=== PATIENT | female | born 1965 | race Caucasian/White ===

== ENCOUNTER 2016-09-14 05:56 | Emergency (ER) | payer BC ==
[2016-09-14 06:04] VITALS: BP 184/68; PULSE 80; RESP 22; TEMP 97.9
--- NOTE | 2016-09-14 06:22 | ED ---
General Adult HPI - General Chief complaint: Psychiatric Symptoms Stated complaint: Mental Health Time Seen by Provider: 09/14/16 06:02 Source: patient, RN notes reviewed, old records reviewed Mode of arrival: EMS - History of Present Illness Initial comments: This is a 58-year-old female to the ER for evaluation today. Patient coming in for evaluation of mental health, psychiatric disease. Patient states that she is apparently living her body which is time the her, she is scratching at it persistently and causing a soft the point of bleeding. Patient has convictions and delusions that this parasite is eating or from the inside out and surgically attacking her body - Related Data Home Medications Medication Instructions Recorded Confirmed Citalopram Hydrobromide 60 mg PO DAILY 02/16/15 07/26/15 [Citalopram HBr] Estrogens, Conjugated [Premarin] 0.3 mg PO DAILY 02/16/15 07/26/15 Gemfibrozil [Gemfibrozil] 600 mg PO BID 02/16/15 07/26/15 Salsalate [Salsalate] 500 mg PO DAILY 02/16/15 07/26/15 Cyclobenzaprine [Flexeril] 10 mg PO HS 07/26/15 07/26/15 Diazepam [Diazepam] 10 mg PO TID PRN 07/26/15 07/26/15 EPINEPHrine (Auto Inject) [Epipen] 0.3 mg IM ONCE PRN 07/26/15 07/26/15 Omeprazole 20 mg PO DAILY 07/26/15 07/26/15 oxyCODONE-APAP 10-325MG [Percocet 1 tab PO Q8H PRN 07/26/15 07/26/15 10-325 mg] Allergies Allergy/AdvReac Type Severity Reaction Status Date / Time No Known Allergies Allergy Verified 07/26/15 10:40 Review of Systems ROS Statement: Those systems with pertinent positive or pertinent negative responses have been documented in the HPI. ROS Other: All systems not noted in ROS Statement are negative. Past Medical History Additional Past Medical History / Comment(s): trigeminal neuralgia, TMJ History of Any Multi-Drug Resistant Organisms: None Reported Past Surgical History: Appendectomy, Cholecystectomy, Hysterectomy Additional Past Surgical History / Comment(s): cervical fusion, Left great toe othro sx, Past Anesthesia/Blood Transfusion Reactions: No Reported Reaction Past Psychological History: No Psychological Hx Reported Smoking Status: Former smoker Past Alcohol Use History: None Reported Past Drug Use History: Heroin General Exam General appearance: alert, in no apparent distress Head exam: Present: atraumatic, normocephalic, normal inspection Eye exam: Present: normal appearance, PERRL, EOMI. Absent: scleral icterus, conjunctival injection, periorbital swelling ENT exam: Present: normal exam, mucous membranes moist Neck exam: Present: normal inspection. Absent: tenderness, meningismus, lymphadenopathy Respiratory exam: Present: normal lung sounds bilaterally. Absent: respiratory distress, wheezes, rales, rhonchi, stridor Cardiovascular Exam: Present: regular rate, normal rhythm, normal heart sounds. Absent: systolic murmur, diastolic murmur, rubs, gallop, clicks GI/Abdominal exam: Present: soft, normal bowel sounds. Absent: distended, tenderness, guarding, rebound, rigid Extremities exam: Present: normal inspection, full ROM, normal capillary refill. Absent: tenderness, pedal edema, joint swelling, calf tenderness Back exam: Present: normal inspection Neurological exam: Present: alert, oriented X3, CN II-XII intact Psychiatric exam: Present: normal affect, normal mood Skin exam: Present: warm, dry, intact, normal color. Absent: rash Course Vital Signs 09/14/16 05:58 Temperature 97.9 F Pulse Rate 80 Respiratory 22 Rate Blood Pressure 184/68 O2 Sat by Pulse 99 Oximetry - Reevaluation(s) Reevaluation #1: 09/14/16 06:22 Patient is medically clear for psychiatric evaluation Medical Decision Making - Medical Decision Making 50 female status of her body, patient denies homicidal or suicidal thoughts, patient unhappy with thoughts of psychiatric evaluation and and refuses to stay in hospital, is here to take patient home Disposition Clinical Impression: Psychosis Disposition: Left Against Medical Advice Condition: Undetermined Referrals: Marco Sims DO [Primary Care Provider] - 1-2 days
== END 2016-09-14 06:44 | disposition left against medical advice (07) ==
LOC: EC 05:56
DX: F29 Unspecified psychosis not due to a substance or known physiological condition (principal); G50.0 Trigeminal neuralgia; Z87.891 Personal history of nicotine dependence; Z79.899 Other long term (current) drug therapy; Z53.29 Procedure and treatment not carried out because of patient's decision for other reasons
CPT/HCPCS: 99284

== ENCOUNTER → 2017-12-04 | Outpatient (CLI) | payer BC ==
[2017-12-04 10:50] LABS: Basophils % (A) 0 %; Eosinophils # (A) 0.3 k/uL (0-0.7); Eosinophils % (A) 3 %; HCT 42.8 % (34.0-46.0); HGB 14.3 gm/dL (11.4-16.0); Lymphocytes # (A) 2.7 k/uL (1.0-4.8); Lymphocytes % (A) 32 %; MCHC 33.4 g/dL (31.0-37.0); MCV 92.6 fL (80.0-100.0); Mean Platelet Volume 6.8; Monocytes # (A) 0.5 k/uL (0-1.0); Monocytes % (A) 6 %; Neutrophils # (A) 4.8 k/uL (1.3-7.7); Neutrophils % (A) 57 %; Platelet Count 434 k/uL (150-450); RBC 4.62 m/uL (3.80-5.40); RDW 13.5 % (11.5-15.5); WBC 8.5 k/uL (3.8-10.6)
[2017-12-04 11:24] LABS: ALT 14 U/L (9-52); AST 20 U/L (14-36); Albumin 4.1 g/dL (3.5-5.0); Alkaline Phosphatase 90 U/L (38-126); Anion Gap 7 mmol/L; Blood Urea Nitrogen 21 mg/dL (7-17); Calcium 9.9 mg/dL (8.4-10.2); Carbon Dioxide 29 mmol/L (22-30); Chloride 103 mmol/L (98-107); Cholesterol 244 mg/dL (<200); Creatine Kinase 48 U/L (30-135); Glucose 97 mg/dL (74-99); HDL Cholesterol 55 mg/dL (40-60); LDL Cholesterol,Calculated 160 mg/dL (0-99); Potassium 4.8 mmol/L (3.5-5.1); Sodium 139 mmol/L (137-145); Total Bilirubin 0.5 mg/dL (0.2-1.3); Total Protein 7.5 g/dL (6.3-8.2); Triglycerides 147 mg/dL (<150)
[2017-12-04 11:40] LABS: T4, Free (Free Thyroxine) 1.09 ng/dL (0.78-2.19)
[2017-12-04 11:43] LABS: Appearance,Urine Clear (Clear); Bilirubin,Urine Negative (Negative); Blood,Urine Negative (Negative); Color,Urine Yellow; Glucose,Urine (UA) Negative (Negative); Ketones,Urine Negative (Negative); Leukocyte Esterase,Urine Negative (Negative); Nitrite,Urine Negative (Negative); PH, Urine 6.5 (5.0-8.0); Protein,Urine Negative (Negative); Specific Gravity,Urine 1.017 (1.001-1.035); Urobilinogen,Urine <2.0 mg/dL (<2.0)
[2017-12-04 12:08] LABS: C Reactive Protein 10.8 mg/L (<10.0)
[2017-12-04 12:15] LABS: Erythrocyte Sedimentation Rate 18 mm/hr (0-20)
[2017-12-04 19:07] LABS: Hemoglobin A1C 5.8 % (4.0-6.0)
== END | disposition home or self-care (01) ==
LOC: LABWHC1 09:20
PROVIDERS: ATTEND Internal Medicine
DX: E78.5 Hyperlipidemia, unspecified (principal); D64.9 Anemia, unspecified; I10 Essential (primary) hypertension; E03.9 Hypothyroidism, unspecified; E55.9 Vitamin D deficiency, unspecified
CPT/HCPCS: 36415; 80053; 80061; 81003; 82306; 82550; 83036; 83735; 84439; 84443; 85025; 85652; 86140

== ENCOUNTER 2018-07-31 07:47 | Inpatient (IN) | payer BC ==
[2018-07-31] MEDS ORDERED: SODIUM CHLORIDE 0.9% 1,000 ML IV STA (08:02)
[2018-07-31] MEDS ORDERED: SODIUM CHLORIDE 0.9% 500 ML 500 ML IV STA (08:02)
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
[2018-07-31 08:29] LABS: Basophils % (A) 0 %; Eosinophils % (A) 0 %; HCT 36.9 % (34.0-46.0); HGB 12.3 gm/dL (11.4-16.0); Lymphocytes # (A) 1.4 k/uL (1.0-4.8); Lymphocytes % (A) 15 %; MCH 30.5 pg (25.0-35.0); MCHC 33.3 g/dL (31.0-37.0); MCV 91.4 fL (80.0-100.0); Mean Platelet Volume 7.1; Monocytes # (A) 0.5 k/uL (0-1.0); Monocytes % (A) 5 %; Neutrophils # (A) 7.2 k/uL (1.3-7.7); Neutrophils % (A) 78 %; Platelet Count 434 k/uL (150-450); RBC 4.04 m/uL (3.80-5.40); RDW 14.7 % (11.5-15.5); WBC 9.3 k/uL (3.8-10.6)
[2018-07-31 08:38] LABS: ALT 35 U/L (9-52); AST 35 U/L (14-36); Albumin 4.5 g/dL (3.5-5.0); Alkaline Phosphatase 121 U/L (38-126); Anion Gap 9 mmol/L; Blood Urea Nitrogen 27 mg/dL (7-17); Calcium 9.9 mg/dL (8.4-10.2); Carbon Dioxide 24 mmol/L (22-30); Chloride 107 mmol/L (98-107); Glucose 92 mg/dL (74-99); Potassium 3.5 mmol/L (3.5-5.1); Salicylate <1.0 mg/dL; Sodium 140 mmol/L (137-145); Total Protein 7.5 g/dL (6.3-8.2)
[2018-07-31 08:39] LABS: Acetaminophen <10.0 ug/mL; Alcohol <10 mg/dL
[2018-07-31] MEDS ORDERED: LORazepam 2 MG/ML INJ IM STA (08:50)
--- NOTE | 2018-07-31 09:01 | CT ---
EXAMINATION TYPE: CT brain wo con DATE OF EXAM: 07/31/2018 COMPARISON: None INDICATION: Mental health DLP: 2296.4 mGycm, Automated exposure control for dose reduction was used. CONTRAST: None CT of the brain is performed utilizing 3 mm thick sections through the posterior fossa and 3 mm thick sections through the remaining calvarium. Study is performed within 24 hours of arrival to the hosp ital. Best possible imaging was performed with an uncooperative patient. Images were repeated. No abnormal hyperdensity is present to suggest an acute intracranial hemorrhage. No mass lesion is evident. No acute infarcts are evident. Ventricles and sulci are appropriate for the patient age. Paranasal sinuses and mastoid air cells within the [id number] are clear. No acute fractures are identified. IMPRESSIONS: 1. No acute intracranial process.
[2018-07-31] MEDS ORDERED: ZIPRASIDONE 20 MG VIAL IM STA (11:54)
[2018-07-31] MEDS ORDERED: LORazepam 1 MG TAB PO PRN ×2 (14:19→22:44)
[2018-07-31] MEDS ORDERED: MAG HYDROX/AL HYDROX/SIMETH 30 ML CUP PO PRN (14:19)
[2018-07-31] MEDS ORDERED: MAGNESIUM HYDROXIDE 2,400 MG/10 ML CUP PO PRN (14:19)
[2018-07-31] MEDS: CYCLOBENZAPRINE 10 MG TAB PO SCH ×2 (16:24→20:23)
[2018-07-31] MEDS: GABAPENTIN 300 MG CAP PO SCH ×2 (16:24→20:23)
--- NOTE | 2018-07-31 17:36 | P.PN ---
Progress Note - Text Progress Note Date: 07/31/18 Discussed with VAZQUEZ Reagan, patient received Geodon IM injection on the ED. She is currently sleeping and is inappropriate to be seen at this time. Will attempt to see her tomorrow morning.
[2018-07-31] MEDS: PANTOPRAZOLE 40 MG TABLET PO SCH (17:49)
[2018-07-31] MEDS: ZIPRASIDONE 20 MG VIAL IM PRN (21:30)
[2018-08-01] MEDS ORDERED: ZIPRASIDONE 20 MG VIAL IM ONE (07:54)
[2018-08-01] MEDS: ZIPRASIDONE 20 MG VIAL IM PRN (07:58)
[2018-08-01] MEDS ORDERED: CITALOPRAM HYDROBROMIDE 20 MG TAB PO SCH (09:00)
[2018-08-01] MEDS ORDERED: LORazepam 2 MG/ML INJ IM PRN (09:48)
[2018-08-01] MEDS: ATORVASTATIN 40 MG TAB PO SCH (09:59)
[2018-08-01] MEDS: PANTOPRAZOLE 40 MG TABLET PO SCH ×2 (09:59→18:16)
[2018-08-01] MEDS: GABAPENTIN 300 MG CAP PO SCH ×3 (10:00→22:00)
[2018-08-01] MEDS: CYCLOBENZAPRINE 10 MG TAB PO SCH ×3 (10:00→21:58)
[2018-08-01] MEDS: OLANZapine 5 MG TAB PO SCH ×2 (13:37→21:58)
[2018-08-01 13:48] LABS: Appearance,Urine Cloudy (Clear); Bacteria,Urine Rare /hpf; Bilirubin,Urine Negative (Negative); Blood,Urine Negative (Negative); Color,Urine Yellow; Glucose,Urine (UA) Negative (Negative); Ketones,Urine Trace (Negative); Leukocyte Esterase,Urine Negative (Negative); Mucus,Urine Many /hpf; Nitrite,Urine Negative (Negative); Protein,Urine 1+ (Negative); RBC,Urine 10 /hpf (0-5); Specific Gravity,Urine 1.031 (1.001-1.035); Squamous Epithelial Cell,Urine 3 /hpf (0-4); Urobilinogen,Urine <2.0 mg/dL (<2.0); WBC,Urine 3 /hpf (0-5)
[2018-08-01 13:49] LABS: Amphetamine Screen,Urine Detected (NotDetected); Cocaine Screen,Urine Not Detected (NotDetected); Opiate Screen,Urine Not Detected (NotDetected); Phencyclidine Screen,Urine Not Detected (NotDetected); Urn Cannabinoid Scrn Not Detected (NotDetected)
[2018-08-01 13:50] LABS: Barbiturate Screen,Urine Not Detected (NotDetected); Benzodiazepines Screen,Urine Detected (NotDetected); Methadone Screen, Urine Not Detected (NotDetected); Oxycodone Screen, Urine Not Detected (NotDetected); Tricyclic Antidepressant,Urine Detected (NotDetected)
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
[2018-08-01] MEDS: NICOTINE 14MG/24HR PATCH TRANSDERM SCH (22:00)
[2018-08-02] MEDS: ACETAMINOPHEN TAB 325 MG TAB PO PRN ×2 (02:29→10:32)
[2018-08-02] MEDS: LORazepam 1 MG TAB PO PRN ×2 (02:29→15:45)
[2018-08-02] MEDS: PANTOPRAZOLE 40 MG TABLET PO SCH ×2 (07:57→16:34)
[2018-08-02] MEDS: OLANZapine 5 MG TAB PO SCH ×2 (09:22→22:52)
[2018-08-02] MEDS: NICOTINE 14MG/24HR PATCH TRANSDERM SCH (09:22)
[2018-08-02] MEDS: GABAPENTIN 300 MG CAP PO SCH ×3 (09:23→22:52)
[2018-08-02] MEDS: ATORVASTATIN 40 MG TAB PO SCH (09:23)
[2018-08-02] MEDS: CYCLOBENZAPRINE 10 MG TAB PO SCH ×3 (09:23→22:52)
[2018-08-02] MEDS: ESTROGENS, CONJUGATED 0.3 MG TAB PO SCH (11:10)
[2018-08-02] MEDS ORDERED: IBUPROFEN 800 MG TAB PO ONE (12:45)
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
[2018-08-02] MEDS ORDERED: IBUPROFEN 800 MG TAB PO SCH (16:00)
[2018-08-02] MEDS: IBUPROFEN 800 MG TAB PO SCH (18:18)
[2018-08-03] MEDS: ESTROGENS, CONJUGATED 0.3 MG TAB PO SCH (08:36)
[2018-08-03] MEDS: NICOTINE 14MG/24HR PATCH TRANSDERM SCH (08:36)
[2018-08-03] MEDS: LORazepam 1 MG TAB PO PRN ×2 (08:36→15:32)
[2018-08-03] MEDS: OLANZapine 5 MG TAB PO SCH ×2 (08:37→21:20)
[2018-08-03] MEDS: CYCLOBENZAPRINE 10 MG TAB PO SCH ×3 (08:37→21:20)
[2018-08-03] MEDS: PANTOPRAZOLE 40 MG TABLET PO SCH ×2 (08:37→17:50)
[2018-08-03] MEDS: ATORVASTATIN 40 MG TAB PO SCH (08:39)
[2018-08-03] MEDS: IBUPROFEN 800 MG TAB PO SCH ×3 (09:45→21:21)
[2018-08-03] MEDS: GABAPENTIN 300 MG CAP PO SCH ×3 (09:46→21:20)
[2018-08-03] MEDS: ACETAMINOPHEN TAB 325 MG TAB PO PRN (10:23)
[2018-08-03] MEDS: NICOTINE 21MG/24HR PATCH TRANSDERM SCH (11:23)
[2018-08-03 11:52] LABS: Hemoglobin A1C 5.4 % (4.0-6.0)
[2018-08-03] MEDS: cloNIDine HCL 0.1 MG TAB PO SCH ×2 (11:58→21:20)
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
[2018-08-03] MEDS: ALBUTEROL NEBULIZED 2.5 MG/3 ML INHALATION PRN (13:08)
[2018-08-03 14:44] LABS: Serum Amphetamine Negative; Serum Barbiturates Negative; Serum Benzodiazepine Positive; Serum Cocaine Negative; Serum Methadone Negative; Serum Opiates Negative; Serum Phencyclidine Negative; Serum Propoxyphene Negative; Serum THC (Cannabis) Negative
[2018-08-03] MEDS ORDERED: cloNIDine HCL 0.1 MG TAB PO SCH (21:00)
[2018-08-03] MEDS: DIVALPROEX SPRINKLE 125 MG CAP.SPRINK PO SCH (21:21)
[2018-08-04] MEDS: OLANZapine 5 MG TAB PO SCH (08:37)
[2018-08-04] MEDS: cloNIDine HCL 0.1 MG TAB PO SCH ×2 (08:37→21:49)
[2018-08-04] MEDS: GABAPENTIN 300 MG CAP PO SCH ×3 (08:37→21:52)
[2018-08-04] MEDS: DIVALPROEX SPRINKLE 125 MG CAP.SPRINK PO SCH ×2 (08:37→21:51)
[2018-08-04] MEDS: IBUPROFEN 800 MG TAB PO SCH ×3 (08:37→21:52)
[2018-08-04] MEDS: ESTROGENS, CONJUGATED 0.3 MG TAB PO SCH (08:37)
[2018-08-04] MEDS: PANTOPRAZOLE 40 MG TABLET PO SCH ×2 (08:38→18:01)
[2018-08-04] MEDS: NICOTINE 21MG/24HR PATCH TRANSDERM SCH (08:38)
[2018-08-04] MEDS: ATORVASTATIN 40 MG TAB PO SCH (08:38)
[2018-08-04] MEDS: CYCLOBENZAPRINE 10 MG TAB PO SCH ×3 (08:38→21:52)
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
[2018-08-04] MEDS: ALBUTEROL NEBULIZED 2.5 MG/3 ML INHALATION PRN ×2 (14:14→21:50)
[2018-08-04] MEDS: ACETAMINOPHEN TAB 325 MG TAB PO PRN (19:51)
[2018-08-05] MEDS: NICOTINE 21MG/24HR PATCH TRANSDERM SCH (08:34)
[2018-08-05] MEDS: CYCLOBENZAPRINE 10 MG TAB PO SCH ×3 (08:34→21:15)
[2018-08-05] MEDS: ATORVASTATIN 40 MG TAB PO SCH (08:34)
[2018-08-05] MEDS: cloNIDine HCL 0.1 MG TAB PO SCH ×2 (08:34→21:15)
[2018-08-05] MEDS: GABAPENTIN 300 MG CAP PO SCH ×3 (08:34→21:15)
[2018-08-05] MEDS: PANTOPRAZOLE 40 MG TABLET PO SCH ×2 (08:35→15:53)
[2018-08-05] MEDS: IBUPROFEN 800 MG TAB PO SCH ×3 (08:37→21:15)
[2018-08-05] MEDS: ESTROGENS, CONJUGATED 0.3 MG TAB PO SCH (08:41)
[2018-08-05] MEDS: DIVALPROEX SPRINKLE 125 MG CAP.SPRINK PO SCH (08:41)
[2018-08-05] MEDS ORDERED: CITALOPRAM HYDROBROMIDE 20 MG TAB PO SCH (09:00)
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
[2018-08-05] MEDS ORDERED: DIVALPROEX ER 250 MG TAB.ER.24H PO SCH (21:00)
[2018-08-05] MEDS: ALBUTEROL NEBULIZED 2.5 MG/3 ML INHALATION PRN (22:16)
[2018-08-06] MEDS: PANTOPRAZOLE 40 MG TABLET PO SCH ×2 (07:43→17:48)
[2018-08-06] MEDS: NICOTINE 21MG/24HR PATCH TRANSDERM SCH (08:30)
[2018-08-06] MEDS: GABAPENTIN 300 MG CAP PO SCH ×3 (08:30→21:16)
[2018-08-06] MEDS: ESTROGENS, CONJUGATED 0.3 MG TAB PO SCH (08:31)
[2018-08-06] MEDS: cloNIDine HCL 0.1 MG TAB PO SCH ×2 (08:31→21:15)
[2018-08-06] MEDS: CYCLOBENZAPRINE 10 MG TAB PO SCH ×3 (08:31→21:16)
[2018-08-06] MEDS: ATORVASTATIN 40 MG TAB PO SCH (08:31)
[2018-08-06] MEDS: IBUPROFEN 800 MG TAB PO SCH ×3 (08:32→21:15)
[2018-08-06] MEDS: ALBUTEROL NEBULIZED 2.5 MG/3 ML INHALATION PRN (09:44)
[2018-08-06] MEDS: ACETAMINOPHEN TAB 325 MG TAB PO PRN (11:22)
[2018-08-06] MEDS ORDERED: NA PHOS,M-B/NA PHOS,DI-BA 133 ML ENEMA RECTAL ONE (12:00)
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
[2018-08-06] MEDS ORDERED: ALBUTEROL NEBULIZED 2.5 MG/3 ML INHALATION PRN (14:22)
[2018-08-06] MEDS: DIVALPROEX ER 500 MG TAB.ER.24H PO SCH (21:16)
[2018-08-07] MEDS: ACETAMINOPHEN TAB 325 MG TAB PO PRN (00:37)
--- NOTE | 2018-08-07 01:18 | P.PN ---
Progress Note - Text Progress Note Date: 08/07/18 Notified by nurse to see patient complaining of sudden onset abdominal pain. Patient reports severe abdominal pain all over her belly radiating to the back no associated nausea vomiting no fevers chills no GI bleeding. She reports some constipation yesterday she was given Fleet enema after which she passed some bowel movement. She reports that she was recently a month ago hospitalized at [facility] for similar episode of abdominal pain she spent a week at the hospital was told that she has irritable bowel syndrome but they were trying to rule out obstructive bowels and was discharged home she did not require any surgical intervention At this time her vital signs are stable no hypertension no tachycardia no fevers. Patient rates her pain 10 out of 10 in severity sharp in nature radiating to the back all over her belly no relieving or aggravating factor she also has the urge to urinate at this time. But denies any dysuria frequency or incomplete emptying denies any hematuria Abdominal exam diffusely tender to palpation with voluntary guarding no rebound tenderness nor rigidity soft, bowel sounds positive, no palpable organomegaly no abdominal wall hernias no skin rashes Patient with history of irritable bowel syndrome Plan Check acute abdominal series rule out any air under the diaphragm that could indicate bowel Also evaluate for bowel caliber's or any evidence of bowel obstruction Check serum amylase, lipase, CBC, CMP Further recommendations pending review of above tests If they come back unremarkable, patient will be given a dose of Bentyl to help with IBD
--- NOTE | 2018-08-07 02:06 | XR ---
INDICATION: Acute sudden onset abdominal pain COMPARISON: Abdominal radiographs 07/26/15 FINDINGS: Upright frontal view of the chest and upright and supine frontal views of the abdomen are reviewed. The lungs are clear. The cardiac and mediastinal contours are normal. No evidence of extraluminal air under the diaphragms. The abdominal films demonstrate a normal bowel gas pattern. No bowel distention or air-fluid levels. No evidence of organomegaly, abnormal calcifications or obvious soft tissue masses. There are cholecystectomy clips in the right upper quadrant. There are no acute osseous findings. There has been previous surgical fusion of the lower cervical spine. IMPRESSION: Nonobstructive bowel gas pattern.
[2018-08-07 02:09] LABS: Basophils % (A) 0 %; Eosinophils # (A) 0.3 k/uL (0-0.7); Eosinophils % (A) 4 %; HCT 37.2 % (34.0-46.0); HGB 12.2 gm/dL (11.4-16.0); Lymphocytes # (A) 2.8 k/uL (1.0-4.8); Lymphocytes % (A) 40 %; MCH 30.7 pg (25.0-35.0); MCHC 32.7 g/dL (31.0-37.0); MCV 93.9 fL (80.0-100.0); Mean Platelet Volume 6.5; Monocytes # (A) 0.4 k/uL (0-1.0); Monocytes % (A) 5 %; Neutrophils # (A) 3.4 k/uL (1.3-7.7); Neutrophils % (A) 48 %; Platelet Count 305 k/uL (150-450); RBC 3.96 m/uL (3.80-5.40); WBC 7.1 k/uL (3.8-10.6)
[2018-08-07 02:31] LABS: ALT 31 U/L (9-52); AST 26 U/L (14-36); Albumin 3.5 g/dL (3.5-5.0); Alkaline Phosphatase 97 U/L (38-126); Amylase 51 U/L (30-110); Anion Gap 4 mmol/L; Blood Urea Nitrogen 8 mg/dL (7-17); Calcium 9.1 mg/dL (8.4-10.2); Carbon Dioxide 26 mmol/L (22-30); Chloride 109 mmol/L (98-107); Glucose 101 mg/dL (74-99); Lipase 59 U/L (23-300); Potassium 3.9 mmol/L (3.5-5.1); Sodium 139 mmol/L (137-145); Total Bilirubin 0.4 mg/dL (0.2-1.3); Total Protein 6.1 g/dL (6.3-8.2)
[2018-08-07] MEDS: ATORVASTATIN 40 MG TAB PO SCH (08:17)
[2018-08-07] MEDS: CYCLOBENZAPRINE 10 MG TAB PO SCH ×3 (08:18→20:17)
[2018-08-07] MEDS: NICOTINE 21MG/24HR PATCH TRANSDERM SCH (08:18)
[2018-08-07] MEDS: GABAPENTIN 300 MG CAP PO SCH ×3 (08:18→20:21)
[2018-08-07] MEDS: ESTROGENS, CONJUGATED 0.3 MG TAB PO SCH (08:18)
[2018-08-07] MEDS: PANTOPRAZOLE 40 MG TABLET PO SCH ×2 (08:18→18:06)
[2018-08-07] MEDS: IBUPROFEN 800 MG TAB PO SCH ×3 (08:19→20:15)
[2018-08-07] MEDS: DICYCLOMINE 20 MG TAB PO PRN ×3 (08:19→20:47)
[2018-08-07] MEDS: cloNIDine HCL 0.1 MG TAB PO SCH ×2 (08:20→20:14)
[2018-08-07] MEDS ORDERED: ALBUTEROL INHALER 60 PUFF/8 GM INHALER INHALATION PRN (10:32)
[2018-08-07] MEDS: ALBUTEROL INHALER 60 PUFF/8 GM INHALER INHALATION PRN ×2 (10:52→16:08)
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
[2018-08-07] MEDS: DIVALPROEX ER 500 MG TAB.ER.24H PO SCH (20:14)
[2018-08-07] MEDS: SUMAtriptan SUCCINATE 25 MG TAB PO PRN (20:22)
[2018-08-08] MEDS: GABAPENTIN 300 MG CAP PO SCH ×3 (08:17→20:44)
[2018-08-08] MEDS: ATORVASTATIN 40 MG TAB PO SCH (08:17)
[2018-08-08] MEDS: NICOTINE 21MG/24HR PATCH TRANSDERM SCH (08:17)
[2018-08-08] MEDS: ESTROGENS, CONJUGATED 0.3 MG TAB PO SCH (08:17)
[2018-08-08] MEDS: cloNIDine HCL 0.1 MG TAB PO SCH ×2 (08:18→20:45)
[2018-08-08] MEDS: IBUPROFEN 800 MG TAB PO SCH ×3 (08:18→20:44)
[2018-08-08] MEDS: PANTOPRAZOLE 40 MG TABLET PO SCH ×2 (08:18→16:37)
[2018-08-08] MEDS: CYCLOBENZAPRINE 10 MG TAB PO SCH ×3 (08:18→20:44)
[2018-08-08] MEDS: ALBUTEROL INHALER 60 PUFF/8 GM INHALER INHALATION PRN (08:22)
[2018-08-08] MEDS: DICYCLOMINE 20 MG TAB PO PRN ×2 (09:03→16:40)
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
[2018-08-08] MEDS: DIVALPROEX ER 500 MG TAB.ER.24H PO SCH (20:45)
[2018-08-09] MEDS: ALBUTEROL INHALER 60 PUFF/8 GM INHALER INHALATION PRN ×2 (07:47→16:19)
[2018-08-09] MEDS: PANTOPRAZOLE 40 MG TABLET PO SCH ×2 (07:48→18:01)
[2018-08-09] MEDS: DICYCLOMINE 20 MG TAB PO PRN ×2 (07:48→16:19)
[2018-08-09] MEDS: ESTROGENS, CONJUGATED 0.3 MG TAB PO SCH (07:48)
[2018-08-09] MEDS: ATORVASTATIN 40 MG TAB PO SCH (07:49)
[2018-08-09] MEDS: CYCLOBENZAPRINE 10 MG TAB PO SCH ×3 (07:49→20:13)
[2018-08-09] MEDS: IBUPROFEN 800 MG TAB PO SCH ×3 (07:49→20:13)
[2018-08-09] MEDS: GABAPENTIN 300 MG CAP PO SCH ×3 (07:49→20:12)
[2018-08-09] MEDS: cloNIDine HCL 0.1 MG TAB PO SCH ×2 (07:50→20:13)
[2018-08-09] MEDS: NICOTINE 21MG/24HR PATCH TRANSDERM SCH (07:51)
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
[2018-08-09] MEDS ORDERED: ZIPRASIDONE 20 MG VIAL IM ONE (14:22)
[2018-08-09] MEDS: SUMAtriptan SUCCINATE 25 MG TAB PO PRN (17:56)
[2018-08-09] MEDS: OLANZapine 2.5 MG TAB PO SCH (20:12)
[2018-08-09] MEDS: DIVALPROEX ER 500 MG TAB.ER.24H PO SCH (20:12)
[2018-08-10] MEDS: NICOTINE 21MG/24HR PATCH TRANSDERM SCH (07:45)
[2018-08-10] MEDS: ESTROGENS, CONJUGATED 0.3 MG TAB PO SCH (07:46)
[2018-08-10] MEDS: GABAPENTIN 300 MG CAP PO SCH ×3 (07:46→20:18)
[2018-08-10] MEDS: IBUPROFEN 800 MG TAB PO SCH ×3 (07:46→20:19)
[2018-08-10] MEDS: ATORVASTATIN 40 MG TAB PO SCH (07:47)
[2018-08-10] MEDS: PANTOPRAZOLE 40 MG TABLET PO SCH ×2 (07:47→16:28)
[2018-08-10] MEDS: CYCLOBENZAPRINE 10 MG TAB PO SCH ×3 (07:47→20:18)
[2018-08-10] MEDS: cloNIDine HCL 0.1 MG TAB PO SCH ×2 (07:48→20:19)
[2018-08-10] MEDS: DICYCLOMINE 20 MG TAB PO PRN ×2 (07:51→18:15)
[2018-08-10] MEDS: ALBUTEROL INHALER 60 PUFF/8 GM INHALER INHALATION PRN (07:51)
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
[2018-08-10] MEDS: SUMAtriptan SUCCINATE 25 MG TAB PO PRN (18:15)
[2018-08-10] MEDS: DIVALPROEX ER 250 MG TAB.ER.24H PO SCH (20:18)
[2018-08-10] MEDS: OLANZapine 2.5 MG TAB PO SCH (20:18)
[2018-08-11] MEDS: ALBUTEROL INHALER 60 PUFF/8 GM INHALER INHALATION PRN ×2 (07:13→21:16)
[2018-08-11] MEDS: PANTOPRAZOLE 40 MG TABLET PO SCH ×2 (07:45→17:28)
[2018-08-11] MEDS: DICYCLOMINE 20 MG TAB PO PRN ×3 (07:45→21:16)
[2018-08-11] MEDS: GABAPENTIN 300 MG CAP PO SCH ×3 (08:03→21:14)
[2018-08-11] MEDS: IBUPROFEN 800 MG TAB PO SCH ×3 (08:03→21:14)
[2018-08-11] MEDS: NICOTINE 21MG/24HR PATCH TRANSDERM SCH (08:03)
[2018-08-11] MEDS: ESTROGENS, CONJUGATED 0.3 MG TAB PO SCH (08:03)
[2018-08-11] MEDS: cloNIDine HCL 0.1 MG TAB PO SCH ×2 (08:03→21:15)
[2018-08-11] MEDS: CYCLOBENZAPRINE 10 MG TAB PO SCH ×3 (08:03→21:13)
[2018-08-11] MEDS: ATORVASTATIN 40 MG TAB PO SCH (08:04)
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
[2018-08-11] MEDS: DIVALPROEX ER 250 MG TAB.ER.24H PO SCH (21:13)
[2018-08-11] MEDS: OLANZapine 2.5 MG TAB PO SCH (21:14)
[2018-08-12 06:28] VITALS: TEMP 98.1
[2018-08-12] MEDS: DICYCLOMINE 20 MG TAB PO PRN ×2 (08:01→13:47)
[2018-08-12] MEDS: GABAPENTIN 300 MG CAP PO SCH ×2 (08:01→15:59)
[2018-08-12] MEDS: ESTROGENS, CONJUGATED 0.3 MG TAB PO SCH (08:01)
[2018-08-12] MEDS: NICOTINE 21MG/24HR PATCH TRANSDERM SCH (08:01)
[2018-08-12] MEDS: IBUPROFEN 800 MG TAB PO SCH ×2 (08:01→15:59)
[2018-08-12] MEDS: ALBUTEROL INHALER 60 PUFF/8 GM INHALER INHALATION PRN (08:01)
[2018-08-12] MEDS: PANTOPRAZOLE 40 MG TABLET PO SCH ×2 (08:02→16:00)
[2018-08-12] MEDS: ATORVASTATIN 40 MG TAB PO SCH (08:02)
[2018-08-12] MEDS: cloNIDine HCL 0.1 MG TAB PO SCH (08:02)
[2018-08-12] MEDS: CYCLOBENZAPRINE 10 MG TAB PO SCH ×2 (08:02→16:00)
[2018-08-12 08:09] VITALS: BP 144/80; PULSE 82; RESP 18
[2018-08-12] MEDS: ACETAMINOPHEN TAB 325 MG TAB PO PRN (11:56)
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
== END 2018-08-12 16:04 | disposition home or self-care (01) | DRG 885 ==
LOC: EC 07:47 → 3MHU 13:20
PROVIDERS: ADMIT Psychiatry & Neurology Psychiatry; ATTEND Psychiatry & Neurology Psychiatry
DX: F31.2 Bipolar disorder, current episode manic severe with psychotic features (principal); F42.9 Obsessive-compulsive disorder, unspecified; F15.90 Other stimulant use, unspecified, uncomplicated; F41.8 Other specified anxiety disorders; M79.7 Fibromyalgia; G50.0 Trigeminal neuralgia; F98.8 Other specified behavioral and emotional disorders with onset usually occurring in childhood and adolescence; J45.909 Unspecified asthma, uncomplicated; K21.9 Gastro-esophageal reflux disease without esophagitis; K58.9 Irritable bowel syndrome, unspecified; G43.909 Migraine, unspecified, not intractable, without status migrainosus; M26.609 Unspecified temporomandibular joint disorder, unspecified side; Z91.5 Personal history of self-harm; F17.290 Nicotine dependence, other tobacco product, uncomplicated; Z71.6 Tobacco abuse counseling; Z90.710 Acquired absence of both cervix and uterus; Z79.890 Hormone replacement therapy; Z79.899 Other long term (current) drug therapy; Z91.410 Personal history of adult physical and sexual abuse; Z90.49 Acquired absence of other specified parts of digestive tract; Z98.1 Arthrodesis status; Z98.890 Other specified postprocedural states; Z88.5 Allergy status to narcotic agent; Z91.030 Bee allergy status; Z91.041 Radiographic dye allergy status
CPT/HCPCS: 36415; 70450; 74022; 80053; 80164; 80306; 80307; 80320; 80329; 81001; 82150; 83036; 83520; 83690; 84443; 85025; 87086; 94640; 96360; 96372; 99285